=== PATIENT | female | born 2000 | race Caucasian/White ===

== ENCOUNTER 2019-12-12 12:47 | Emergency (ER) | payer OTHER ==
[~2019-12-12] VITALS: Ht 172.7 cm; Wt 49.9 kg
[2019-12-12] MEDS ORDERED: ATIVAN0.5 M1 PO (13:05)
[2019-12-12] MEDS ORDERED: BUTALBIT-ACETA1 EACH PO (17:11)
== END 2019-12-12 17:25 | disposition home or self-care (01) ==
LOC: ER 12:47
DX: S00.83XA Contusion of other part of head, initial encounter (principal); W18.39XA Other fall on same level, initial encounter; Y93.89 Activity, other specified; Y92.832 Beach as the place of occurrence of the external cause; Y99.8 Other external cause status; Z03.818 Encounter for observation for suspected exposure to other biological agents ruled out